=== PATIENT | female | born 1975 | race Caucasian/White ===

== ENCOUNTER 2019-04-22 01:07 | Emergency (ER) | payer MEDICAID ==
[~2019-04-22] VITALS: Ht 154.9 cm; Wt 59.0 kg
--- NOTE | 2019-04-22 01:07 | NUR ---
PT BIBA BLS TO ER BED 10
[2019-04-22 01:14] VITALS: BP 135/79
--- NOTE | 2019-04-22 01:16 | NUR ---
43 Y/O FEMALE BIBA; PT HAS C/O COUGHING UP BLOOD AT HOME. PT ALSO HAS C/O CHILLS AND GENERALIZED BODY ACHES 5/10 PAIN X 1 DAY. AFEBRILE. BLOOD SUGAR IS 267 MG/DL. LUNG SOUNDS SLIGHT EXPIRATORY WHEEZING NOTED. SPO2 100% ON RA. +N/V; ERMD MADE AWARE OF STATUS. SIDE RAILSX1. PLACED ON MONITOR. WILL CONTINUE TO MONITOR. PMH:DIABETES RX:DENIES NKDA
--- NOTE | 2019-04-22 01:28 | NUR ---
ERMD EVALUATING PATIENT AT THIS TIME.
--- NOTE | 2019-04-22 01:57 | NUR ---
Blood sample and cultures taken to lab.
--- NOTE | 2019-04-22 02:02 | NUR ---
EMT at bedside for EKG.
--- NOTE | 2019-04-22 02:03 | NUR ---
EKG PERFORMED AT BEDSIDE
--- NOTE | 2019-04-22 02:08 | NUR ---
X-RAY AT BEDSIDE.
[2019-04-22 02:11] LABS: BASOPHILS # (AUTO) 0.1 K/uL (0.00-0.22); BASOPHILS % (AUTO) 1.1 % (0.0-2.0); HEMATOCRIT 43.8 % (36-48); HEMOGLOBIN 14.9 g/dL (12.0-16.0); LYMPHOCYTES # (AUTO) 1.3 K/uL (2.5-16.5); MEAN CORPUSCULAR HEMOGLOBIN 31 pg (27-31); MEAN CORPUSCULAR HGB CONC 34 g/dL (33-37); MONOCYTES # (AUTO) 0.4 K/uL (0.8-1.0); MONOCYTES % (AUTO) 5.5 % (1.7-9.3); NEUTROPHILS # (AUTO) 6.2 K/uL (1.8-7.7); NEUTROPHILS % (AUTO) 77.4 % (42.2-75.2); PLATELET COUNT (AUTO) 350 K/uL (140-450); RED BLOOD CELL COUNT(AUTO) 4.76 MIL/uL (4.20-5.40); RED CELL DISTRIBUTION WIDTH 14.8 % (11.6-13.7)
[2019-04-22 02:20] LABS: ANION GAP 28.4 (8-16); CARBON DIOXIDE 14.3 mmol/L (21-32); CREATININE 0.9 mg/dL (0.6-1.3); POTASSIUM 3.7 mmol/L (3.5-5.1)
[2019-04-22 02:24] LABS: PROTHROMBIN TIME 9.8 secs (10.8-13.4)
[2019-04-22 02:26] LABS: ALBUMIN 3.9 g/dL (3.4-5.0); TOTAL BILIRUBIN 0.7 mg/dL (0.0-1.0)
--- NOTE | 2019-04-22 03:48 | NUR ---
LAB AT BEDSIDE
[2019-04-22 04:01] LABS: BASOPHILS # (AUTO) 0.1 K/uL (0.00-0.22); BASOPHILS % (AUTO) 0.7 % (0.0-2.0); EOSINOPHILS % (AUTO) 0.1 % (0.0-4.0); HEMATOCRIT 42.3 % (36-48); HEMOGLOBIN 14.4 g/dL (12.0-16.0); LYMPHOCYTES # (AUTO) 1.8 K/uL (2.5-16.5); LYMPHOCYTES % (AUTO) 16.8 % (20.5-51.1); MEAN CORPUSCULAR HEMOGLOBIN 31 pg (27-31); MEAN CORPUSCULAR HGB CONC 34 g/dL (33-37); MONOCYTES # (AUTO) 0.5 K/uL (0.8-1.0); MONOCYTES % (AUTO) 4.9 % (1.7-9.3); NEUTROPHILS # (AUTO) 8.5 K/uL (1.8-7.7); NEUTROPHILS % (AUTO) 77.5 % (42.2-75.2); PLATELET COUNT (AUTO) 356 K/uL (140-450); RED BLOOD CELL COUNT(AUTO) 4.65 MIL/uL (4.20-5.40); RED CELL DISTRIBUTION WIDTH 14.4 % (11.6-13.7)
[2019-04-22 05:24] VITALS: BP 132/80
--- NOTE | 2019-04-22 05:24 | NUR ---
Patient discharged with v/s stable. Written and verbal after care instructions given and explained. Patient alert, oriented and verbalized understanding of instructions. Ambulatory with steady gait. All questions addressed prior to discharge. ID band removed. Patient advised to follow up with PMD. Rx of AMELIE WOO given. Patient educated on indication of medication including possible reaction and side effects. Opportunity to ask questions provided and answered.
== END 2019-04-22 05:24 | disposition home or self-care (01) ==
LOC: MED 01:07
DX: R05 Cough (principal); E11.9 Type 2 diabetes mellitus without complications
CPT/HCPCS: 36415; 71045; 80053; 83880; 84484; 85025; 85610; 85730; 87040; 93005; 99285; Q0092